=== PATIENT | male | born 1980 | race Caucasian/White ===

== ENCOUNTER → 2021-08-19 | Outpatient (CLI) | payer BC ==
--- NOTE | 2021-08-20 07:33 | MR ---
MRI CERVICAL SPINE: CLINICAL HISTORY: Neck pain. TECHNIQUE: Multiplanar, multisequence imaging of the cervical spine is performed without IV contrast. COMPARISON: Outside cervical spine x-ray June 06, 2021. FINDINGS: Sagittal images of the cervical spine show the craniocervical junction to appear within nor mal limits. The cervical and upper thoracic spinal cord is normal in caliber and signal. Alignment i s straightened with slight grade 1 retrolisthesis C5 on C6 and C6 on C7. The vertebral body and intr avertebral disk heights are normal. The bone marrow signal intensity is within normal limits. Slight prominence of the adenoid tonsils in the posterior nasal pharynx noted, correlate clinically. Axial images show C2-C3, C3-C4, and C4-C5 levels to appear within normal limits. Axial images at C5-C6 level showed subtle spondylolisthesis and broad-based left foraminal disc protr usion causing asymmetric mild left-sided neural foraminal narrowing and minimal effacement of the ant erolateral thecal sac. Axial images at C6-C7 level shows spondylolisthesis with broad-based posterior disc protrusion mildly effacing the anterior thecal sac and causing mild to moderate left greater than right bilateral neur al foraminal narrowing. Axial images at C7-T1 level show small left foraminal disc protrusion causing asymmetric mild left-si ded neural foraminal narrowing. 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
== END | disposition home or self-care (01) ==
LOC: RADMRIMAIN 19:02
PROVIDERS: ATTEND Orthopaedic Surgery
DX: M43.12 Spondylolisthesis, cervical region (principal); M47.812 Spondylosis without myelopathy or radiculopathy, cervical region; M50.23 Other cervical disc displacement, cervicothoracic region; M48.03 Spinal stenosis, cervicothoracic region
CPT/HCPCS: 72141